=== PATIENT | male | born 1970 | race Asian ===

== ENCOUNTER 2016-12-29 06:41 | Emergency (ER) | payer OTHER ==
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
== END 2016-12-29 11:55 | disposition disaster alternative care site (69) ==
LOC: GACC 06:41
DX: M47.812 Spondylosis without myelopathy or radiculopathy, cervical region (principal); M48.02 Spinal stenosis, cervical region; M25.551 Pain in right hip